=== PATIENT | male | born 1940 | race Caucasian/White ===

== ENCOUNTER 2018-03-21 07:30 | Inpatient (IN) | payer MEDICARE ==
--- NOTE | 2018-03-13 04:03 | HP ---
HISTORY AND PHYSICAL: DATE OF PROCEDURE: 03/21/18. PROVIDER: Dr. Subha Cain.* (DICTATED BY VAHID NICHOLAS) PROCEDURE: Left total knee arthroplasty. HISTORY OF PRESENT ILLNESS: Mr. Rogers is a 77-year-old gentleman with a history of bilateral knee pain. He states his left knee is more painful that his right. He reports 5/10, aching, throbbing pain along the joint line. He feels unstable. He has failed conservative management with anti-inflammatories, pain medications, physical therapy and steroid injections without any relief. He would like to proceed with a left total knee arthroplasty. PAST MEDICAL HISTORY: 1. Hypercholesterolemia. 2. Osteoarthritis. 3. Anemia. 4. Basal-cell carcinoma on the hand. PAST SURGICAL HISTORY: Removal of basal-cell carcinoma. MEDICATIONS: Ibuprofen. FAMILY HISTORY: Maternal and paternal cancer. 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 He lives with his . No tobacco or recreational drug use. He has 10 alcoholic beverages per week, stating normally very active, and independent ambulator and right-hand dominant. REVIEW OF SYSTEMS: General: He denies any fevers, chills or night sweats. No known anesthesia problems. HEENT: He denies any headaches, lightheadedness or syncopal episode. Cardiothoracic: He denies any chest pain, heart palpitations , or edema. Pulmonary: He denies any shortness of breath with exertion, chronic cough, or COPD. GI: He denies any nausea or vomiting or diarrhea, or constipation. : He denies any nocturia, urinary frequency or urinary urgency , or history of UTIs. MSK: He admits to bilateral knee pain. He denies any chronic or intermittent back pain or fractures. Integument: He denies any abrasions, lesions, rashes, lumps, or open sores. Endocrine: He denies any diabetes or thyroid issues. PHYSICAL EXAMINATION GENERAL: The patient is alert and oriented x3 with appropriate mood and affect , appropriate dress and hygiene, antalgic gait, in no acute distress. HEENT: Normocephalic atraumatic. His hearing and vision are grossly intact. PULMONARY: Lungs are clear to auscultation bilaterally with no wheezes, rales or rhonchi. CARDIO: Regular rate and rhythm. Normal S1 and S2. No appreciable S3 and S4. No murmurs, rubs or gallops. MSK: Left knee inspection, left knee reveals no erythema or ecchymosis. Skin is warm, dry and intact. No abrasions or open wounds. He has a varus deformity of the knee. Moderate effusion of the knee is appreciated. Range of motion is 10 degrees shy, full extension to 120 degrees of flexion. No varus or valgus pain or instability. Some tenderness along the MCL and the medial joint line. No tenderness to palpation along the lateral joint line and patellofemoral region. He is neurovascularly intact distally with a 2+ dorsalis pedis pulse. ASSESSMENT: Left knee osteoarthritis, severe endstage. PLAN: Plan to the OR for a left total knee arthroplasty with Dr. Subha Cain, on 03/21/18. The risks and benefits of the surgery were discussed with the patient and he understood. He will follow up in 10 to 14 days postop for suture removal and reassessment. VAHID NICHOLAS [id number]/[facility] #: [id number] [place]
[~2018-03-21 07:30] MED LIST: Acetaminophen TAB* 325 MG PO ONE; Famotidine IV* 10 MG/ML 2 ML (20 mg) IV ONE; Gabapentin CAP(*) 300 MG PO ONE; Tranexamic Acid 1,000 MG in NS 0.9% 50 ML* (outpatient use) IV SCH; celeCOXIB CAP* 200 MG PO ONE
[2018-03-21] MEDS ORDERED: Buffered Lidocaine 0.9% SYRIN* 5 ML/SYR SYRINGE INTRADERM ONE (08:34)
--- OUTSIDE RECORDS SUMMARY | 2018-03-21 08:43 | XMS REPORT ---
:1940 External Reference #:[id number] Author Organization [facility] Address [address] [place] [address] Phone [phone] Care Team Providers Name Role Phone Ryan Castillo MD Primary Care Physician Unavailable Payers Type Date Identification Numbers Payment Provider Subscriber Health Maintenance Policy Number: Medicare Blue o [facility] [id number] PayID: [id number] [address] [address] [place] [address] Problems Date Description Provider Status Onset: 12/02/2017 Disorder of shoulder Kimberly High MD Active Onset: 10/24/2017 Localized, primary osteoarthritis Subha Cain M.D. 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 consumes alcohol 10/week Smoking Patient is a former smoker Exercise Type/Frequency Exercises sporadically Allergies, Adverse Reactions, Alerts Date Description Reaction Status Severity Comments 10/24/2017 NKDA active Medications Medication Date Status Form Strength Qnty SIG Indications Ordering Provider No Active 03/08/20 Active Unknown Medications 18 Ibuprofen Hx Tablets 600mg three Unknown 00 - times a 03/07/20 day 18 Medications Administered in Office Medication Date Status Form Strength Qnty SIG Indications Ordering Provider Triamcinolone 10/25/ Administered Injection Rosmery (Kenalog) 2017 CHIQUITA Peterson Vital Signs Date Vital Result Comment 03/08/2018 Height 72 inches 6'0" Weight 187.00 lb Heart Rate 72 /min BP Systolic 124 mmHg BP Diastolic 84 mmHg BMI (Body Mass Index) 25.4 kg/m2 12/02/2017 Height 72 inches 6'0" Weight 188.00 lb BP Systolic 132 mmHg BP Diastolic 78 mmHg Respiratory Rate 20 /min Pain Level 0 BMI (Body Mass Index) 25.5 kg/m2 10/25/2017 Height 72 inches 6'0" Weight 188.00 lb BP Systolic 130 mmHg BP Diastolic 86 mmHg Respiratory Rate 20 /min Body Temperature 97.5 F Pain Level 3 BMI (Body Mass Index) 25.5 kg/m2 10/24/2017 Height 72 inches 6'0" Weight 188.00 lb Heart Rate 64 /min BP Systolic 144 mmHg BP Diastolic 84 mmHg BMI (Body Mass Index) 25.5 kg/m2 Results Description No Information Procedures Date CPT Code Description Status 10/25/2017 54283 Inject/Drain Joint/Bursa Major W/O US Completed Encounters Type Date Location Provider CPT E/M Dx Office Visit 12/02/2017 9:00a [facility] [place] [address] M75.41 [facility] Office Visit 10/25/2017 9:00a [facility] [place] [address] M25.512 [facility] M25.511 M75.41 S46.012D Office Visit 10/24/2017 10:00a [facility] M.D. 52860 M25.561 [facility] M25.562 M25.461 M25.462 M17.0 Plan of Care Future Appointment(s):04/05/2018 11:15 am - Subha Cain M.D. at [facility]03/21/2018 11:30 am - VAHID Colunga at [facility]03/21/2018 11:30 am - VAHID Dow at [facility]03/21/2018 11:30 am - Subha Cain M.D. at [facility]03/08/2018 - Subha Cain M.D.M25.562 Pain in left kneeFollow up:Follow up: 2 weeks after cybsokqW75.462 Effusion, left kneeM17.0 Bilateral primary osteoarthritis of knee
[2018-03-21] MEDS ORDERED: Acetaminophen TAB* 325 MG ONE (08:45)
[2018-03-21] MEDS ORDERED: celeCOXIB CAP* 100 MG ONE (08:45)
[2018-03-21] MEDS ORDERED: Famotidine IV* 10 MG/ML 2 ML (20 mg) ONE (08:45)
[2018-03-21] MEDS ORDERED: Gabapentin CAP(*) 300 MG ONE (08:45)
[2018-03-21] MEDS ORDERED: ceFAZolin 2 GM in NS PREMIX(*) 2 GM/100 ML BAG IVPB ONE (08:46)
[2018-03-21] MEDS ORDERED: Dexamethasone IV* 4 MG/ML 1 ML (4 MG) ONE (08:59)
[2018-03-21] MEDS ORDERED: Ondansetron INJ* 2 MG/ML VIAL ONE (08:59)
[2018-03-21] MEDS ORDERED: ROPIVACAINE 5 MG/ML 30 ML BTL (0.5%) ONE ×2 (08:59→10:55)
[2018-03-21] MEDS ORDERED: Lidocaine 2% PF * 5 ML VIAL ONE ×3 (08:59→12:01)
[2018-03-21] MEDS ORDERED: Propofol* 10 MG/ML 20 ML BTL IV PUSH ONE ×2 (08:59→12:01)
[2018-03-21] MEDS ORDERED: KETAMINE HCL* 50 MG/ML 10 ML VIAL ONE (09:00)
[2018-03-21] MEDS ORDERED: fentaNYL* 50 MCG/ML 2 ML VIAL (100 MCG VIAL) ONE (09:00)
[2018-03-21] MEDS ORDERED: Midazolam* 1 MG/ML 10 ML VIAL (10 MG) ONE (09:00)
[2018-03-21] MEDS ORDERED: Ropivacaine* 2 MG/ML 20 ML VIAL (0.2%) ONE (10:39)
[2018-03-21] MEDS ORDERED: Bupivacaine 0.5% SDV PF* 30ML VIAL ONE (10:55)
[2018-03-21] MEDS ORDERED: fentaNYL* 50 MCG/ML 2 ML VIAL (100 MCG VIAL) IV PRN (12:54)
[2018-03-21] MEDS ORDERED: Ondansetron INJ* 2 MG/ML VIAL IV PRN ×2 (12:54→14:12)
[2018-03-21] MEDS ORDERED: Naloxone* 0.4 MG/ML 1 ML VIAL IV PRN (12:54)
[2018-03-21] MEDS ORDERED: diPHENhydraMINE IV* 50 MG/ML 1 ml VIAL (BENADRYL) IV PRN (14:12)
[2018-03-21] MEDS ORDERED: Cyclobenzaprine TAB* 10 MG PO PRN (14:12)
[2018-03-21] MEDS ORDERED: Morphine INJ* 2 MG/ML 1 ML SYRINGE (TWO MG - NEW SYRINGE VERSION) IV PRN (14:12)
[2018-03-21] MEDS ORDERED: Magnesium Hydroxide LIQ* 30 ML UDC PO PRN (14:12)
[2018-03-21] MEDS ORDERED: diPHENhydraMINE PO* 25 MG PO PRN (14:12)
[2018-03-21] MEDS ORDERED: Ondansetron ODT TAB* 4 MG PO PRN (14:12)
[2018-03-21] MEDS ORDERED: Sildenafil (NF) 25 MG TAB PO PRN (14:18)
--- NOTE | 2018-03-21 15:53 | RAD ---
Indication: Postop LEFT total knee replacement. Comparison: October 24, 2017 Technique: LEFT knee: Crosstable lateral and AP views. Report: Total knee prosthesis in place. Negative for periprosthetic fracture. Iatrogenic gas at the medullary space of the distal femur and fluid and gas in the joint space and anterior soft tissues. IMPRESSION: #. Unremarkable immediate postop appearance following LEFT total knee replacement.
[2018-03-21] MEDS ORDERED: Warfarin TAB(*) 6 MG PO ONE (17:00)
[2018-03-21] MEDS: Acetaminophen TAB* 325 MG PO SCH ×2 (18:06→22:50)
[2018-03-21] MEDS: oxyCODONE/Acetamin 5/325 MG* TAB PO PRN (19:06)
[2018-03-21] MEDS: ceFAZolin 1 GM in Dextrose (*) 1 GM/50 ML BAG IVPB SCH (20:19)
[2018-03-21] MEDS: Docusate CAP* 100 MG PO SCH (20:21)
[2018-03-21] MEDS: Magnesium Hydroxide LIQ* 30 ML UDC PO SCH (20:21)
[2018-03-21] MEDS: oxyCODONE TAB* 5 MG TAB PO PRN (22:52)
[2018-03-22] MEDS: ceFAZolin 1 GM in Dextrose (*) 1 GM/50 ML BAG IVPB SCH ×2 (03:11→11:21)
[2018-03-22] MEDS: oxyCODONE/Acetamin 5/325 MG* TAB PO PRN ×5 (03:13→21:21)
[2018-03-22 05:53] LABS: Hematocrit 42 % (42-52); Hemoglobin 14.2 g/dl (14.0-18.0); Mean Platelet Volume 8.8 um3 (7.4-10.4); Platelet Count 151 10^3/ul (150-450)
[2018-03-22 05:59] LABS: INR 0.89 (0.77-1.02)
[2018-03-22 06:11] LABS: EGFR Non-African American 92.9 (>60)
[2018-03-22] MEDS: Acetaminophen TAB* 325 MG PO SCH ×2 (08:01→16:04)
[2018-03-22] MEDS: Magnesium Hydroxide LIQ* 30 ML UDC PO SCH ×2 (09:21→21:21)
[2018-03-22] MEDS: Docusate CAP* 100 MG PO SCH ×2 (09:21→21:21)
--- NOTE | 2018-03-22 10:41 | PN ---
Progress Note - Progress Note Date of Service: 03/22/18 SOAP: Subjective: [] Patient seen and examined OOB in chair. He is POD 1 s/p LTK. Knee pain is rated 1/10. Denies chest pain, shortness of breath, dizziness or nausea. Objective: []General: NAD, appears well LLE: Left knee dressing CDI without surrounding erythema or discharge. Thigh is soft, DF/PF intact, Sensation intact distally, DP2+. BL calves supple and nontender without erythema, edema or palpable cords Assessment: []POD 1 SP left total knee arthroplasty 03/21 Dr Cain Plan: []WBAT PT/OT Lovenox bridge to coumadin, coumadin 8 mg today anticipate DC home 03/23 Laboratory Last Values Hgb 14.2 g/dl (14.0-18.0) 03/22/18 05:21 Hct 42 % (42-52) 03/22/18 05:21 Plt Count 151 10^3/ul (150-450) 03/22/18 05:21 MPV 8.8 um3 (7.4-10.4) 03/22/18 05:21 INR (Anticoag Therapy) 0.89 (0.77-1.02) 03/22/18 05:21 Sodium 134 mmol/L (135-145) L 03/22/18 05:21 Potassium 4.4 mmol/L (3.5-5.0) 03/22/18 05:21 Chloride 101 mmol/L (101-111) 03/22/18 05:21 Carbon Dioxide 29 mmol/L (22-32) 03/22/18 05:21 Anion Gap 4 mmol/L (2-11) 03/22/18 05:21 BUN 15 mg/dL (6-24) 03/22/18 05:21 Creatinine 0.81 mg/dL (0.67-1.17) 03/22/18 05:21 Est GFR ( Amer) 112.4 (>60) 03/22/18 05:21 Est GFR (Non-Af Amer) 92.9 (>60) 03/22/18 05:21 BUN/Creatinine Ratio 18.5 (8-20) 03/22/18 05:21 Glucose 152 mg/dL (70-100) H 03/22/18 05:21 Calcium 9.1 mg/dL (8.6-10.3) 03/22/18 05:21 Vital Signs Temp 98.0 F 03/22/18 07:15 Pulse 60 03/22/18 07:15 Resp 18 03/22/18 09:19 BP 131/74 03/22/18 07:15 Pulse Ox 97 03/22/18 08:00 Intake & Output 03/21/18 03/22/18 03/22/18 18:59 06:59 18:59 Intake Total 1950 2225 320 Output Total 300 1999 Balance 1650 225 320 Weight 189 lb 6.4 oz Intake: IV Fluids 1950 925 ABX - CEFAZOLIN 55 LR 1900 870 NS 50ML, Cefazolin 2G 50 Oral 1300 320 Output: Urine 0 Acuña 300 1999 Other: # Bowel Movements 0
[2018-03-22] MEDS: Enoxaparin(*) 40 MG/0.4 ML SYR SUBCUT SCH (11:21)
[2018-03-22] MEDS ORDERED: NS 0.9% 500 ML* 500 ML IV ONE (13:35)
--- NOTE | 2018-03-22 13:46 | PN ---
Hospitalist Progress Note Date of Service: 03/22/18 Pt seen and examined after a rapid response was called by staff. Pt was in joint gym for PT session and had just recently taken Percocet 2 hrs prior. He mentions that he felt like he was about to pass out when he sat back in the chair and felt nauseated. BP 109/57, sats =100%. FS = 111. Pt was found awake , alert, and oriented but diaphoretic. Ordered 500 cc NS bolus x1, then decrease to 75 cc/hr x 2L. CBC with diff, CMP, Mg2+, Phosphate, Troponins ordered. EKG did not reveal any significant blocks nor ST segment changes. Instructed RN to text page me the data for orthostatic VS once bolus is done.
[2018-03-22] MEDS: NS 0.9% 1000 ML* 1,000 ML IV SCH (13:57)
--- NOTE | 2018-03-22 14:00 | RAD ---
Indication: Nausea and diaphoresis. Single frontal view of the chest performed at 1345 hours was reviewed. Comparison is made with previous exam dated March 08, 2018. No mediastinal shift is noted. Heart is of normal size and configuration. Lung land appear clear. IMPRESSION: NO ACTIVE CARDIOPULMONARY DISEASE IS NOTED.
[2018-03-22 15:14] LABS: Hematocrit 38 % (42-52); Hemoglobin 12.9 g/dl (14.0-18.0); Mean Corpuscular HGB Conc 34 g/dl (31-36); Mean Corpuscular Hemoglobin 32 pg (27-31); Mean Corpuscular Volume 93 fL (80-94); Mean Platelet Volume 9.1 um3 (7.4-10.4); Platelet Count 138 10^3/ul (150-450); Red Blood Count 4.04 10^6/ul (4.00-5.40); Red Cell Distribution Width 13 % (10.5-15); White Blood Count 11.5 10^3/ul (3.5-10.8)
[2018-03-22 15:28] LABS: EGFR Non-African American 91.6 (>60)
[2018-03-22] MEDS ORDERED: Sodium Phosphate INJ* 30 MMOLE in NS 0.9% 250 ML* 250 ML IVPB STA (15:57)
[2018-03-22] MEDS ORDERED: Warfarin TAB(*) 4 MG PO ONE (17:00)
--- NOTE | 2018-03-22 21:59 | OP ---
DATE OF OPERATION: 03/21/18 - ROOM #[id number] DATE OF : 44 SURGEON: Subha Cain MD COMMUNICATIONS MANAGER: VAHID Colunga. Ms. Bautista did help throughout the procedure with preparation of the leg, wound retraction, manipulation of the knee, and wound closure. ANESTHESIOLOGIST: Dr. Marroquin. ANESTHESIA: Spinal. PRE-OP DIAGNOSIS: Severe end-stage degenerative osteoarthritis of the left knee joint. POST-OP DIAGNOSIS: Severe end-stage degenerative osteoarthritis of the left knee joint. OPERATIVE PROCEDURE: Left total knee arthroplasty. TOURNIQUET TIME: 48 minutes. ESTIMATED BLOOD LOSS: 250 cc. SPECIMENS: Bone and cartilage from the left knee sent to Pathology. HARDWARE USED: This is Case and Nephew cemented total knee arthroplasty hardware. Two packages of Simplex bone cement. For the femur, a left size 6 posterior stabilized Legion femoral component. For the tibia, a left size 6 Anh II tibial base plate. For the insert, a 9-mm posterior stabilized articular insert size 5/6. For the patella, a 32 mm 3-peg all-poly patella. BRIEF HISTORY/INDICATIONS: Mr. Rogers is a 77-year-old gentleman with years of increasingly severe left knee pain. He failed conservative treatment with anti - inflammatories, pain medications, intraarticular injections, and physical therapy. Due to continued pain and decreased quality of life, he elected to undergo left total knee arthroplasty. Radiographs showed [id number] contact. Informed consent was obtained from the patient. He understood the risks of surgery included but were not limited to bleeding, infection, damage to nearby structures, continued pain, need for further surgery, intraoperative fracture, nerve palsy, hardware failure or loosening, knee stiffness, loss of motion, stroke, heart attack, blood clot, and . He wished to proceed. INTRAOPERATIVE FINDINGS: Intraoperatively, the patient was noted to have severe end-stage arthritis with complete loss of cartilage in the medial and patellofemoral compartments. DESCRIPTION OF PROCEDURE: Mr. Rogers was identified in the preanesthesia unit. His left lower extremity was marked as the correct operative side. Informed consent was signed and placed in the chart. The patient was taken to the operating room and placed under spinal anesthesia. A Acuña catheter was placed. Tourniquet was placed on the left thigh. Left lower extremity was prepped and draped in the usual sterile fashion. Preop time-out was made to correctly identify the patient's side and site. Appropriate perioperative antibiotics were given within 1 hour of incision. Tourniquet was inflated and total tourniquet time for this procedure was 48 minutes. A midline incision was made with a 10 blade and carried down to the extensor mechanism. A new 10 blade was used to make a standard medial parapatellar arthrotomy. The patella was subluxed laterally. Electrocautery was used to subperiosteally elevate soft tissue off the superomedial tibia to the mid sagittal plane. The knee was flexed up. The anterior horn of the lateral meniscus and ACL were sharply released. A drill was used to enter the distal femur. Intramedullary distal femoral cutting guide was pinned on the distal femur. Oscillating saw was used to make the distal femoral cut. Next, the external rotation guide was pinned on the distal femur. Distal femur was sized to a size 6. Size 6 multi-cutting jig was pinned on the distal femur. Oscillating saw was used to make the appropriate chamfer cuts. PCL was completely released and the tibia was subluxed anteriorly. Extramedullary tibial cutting guide was pinned on the proximal tibia. Oscillating saw was used to make the proximal tibial cut perpendicular to the mechanical axis of the tibia. The bone was carefully removed. The knee was brought out into full extension and the spacer block had good fit with the knee in full extension. Medial and lateral ligaments were well balanced. Flexion and extension gaps were well balanced. The knee was flexed up. Lamina chief medical officer was placed both medially and laterally. Any remaining meniscus was carefully removed using electrocautery. Curved osteotome was used to remove any osteophytes along the posterior femoral condyles. Tibial tray and drop tigre were placed and once again confirmed a satisfactory tibial cut. A size 6 left femoral trial was impacted onto the distal femur and had good fit. The box for the posterior stabilized implant was prepared using a reamer and box cut osteotome. Size 6 tibial tray trial with a 9 mm insert trial was placed and the knee was taken through a range of motion. The knee had full extension to 130 degrees of flexion. There was satisfactory patellofemoral tracking. Patella was everted. 9 mm of patellar bone and cartilage were carefully removed using an oscillating saw. Patella was sized to a size 32. Three peg holes were drilled through the size 32 guide. A 32 trial patella was placed and the knee was taken through a range of motion. There was satisfactory patellofemoral tracking. All trials were carefully removed. Tibia was subluxed anteriorly and sized to a size 6. Proximal tibia was prepared using a size 6 keel punch. All bony cut surfaces were copiously irrigated with sterile saline and dried. Final implants were cemented into place starting with the tibia, followed by the femur , and last the patella. A 9 mm insert trial was placed while the knee was brought out into full extension. Tourniquet was turned down at 48 minutes. Electrocautery was used to obtain meticulous hemostasis. The knee was copiously irrigated with sterile saline. Once the cement had fully cured, the insert trial was removed. Any excess cement was removed from around the capsule and hardware. Final insert chosen was a 9 mm posterior stabilized articular insert size 5/6. This was locked into position on the tibial tray. The stability of the insert was checked and rechecked and noted to be stable. The knee was copiously irrigated with sterile saline. Extensor mechanism was closed using interrupted #1 Vicryl. The rest of the incision was closed in a layered fashion using 0 and 2-0 Vicryl. Skin was closed using running 3-0 nylon suture. Sterile Xeroform, 4x4's, and Webril were used to cover the incision. Ryan wrap and cold pack were placed over this. The patient's anesthesia was reversed without difficulty. He was taken to the PACU in stable condition. Intended weightbearing will be weightbearing as tolerated. Intended DVT prophylaxis will be Coumadin with a Lovenox bridge. [id number]/[facility] #: [id number] [facility]ITAL[facility]
[2018-03-23] MEDS: Acetaminophen TAB* 325 MG PO SCH ×3 (01:21→17:03)
[2018-03-23] MEDS: NS 0.9% 1000 ML* 1,000 ML IV SCH (03:55)
[2018-03-23 05:24] LABS: Hematocrit 41 % (42-52); Hemoglobin 13.9 g/dl (14.0-18.0); Mean Platelet Volume 8.9 um3 (7.4-10.4); Platelet Count 137 10^3/ul (150-450)
[2018-03-23 05:28] LABS: INR 0.99 (0.77-1.02)
[2018-03-23] MEDS: oxyCODONE/Acetamin 5/325 MG* TAB PO PRN ×2 (07:10→11:50)
[2018-03-23] MEDS: Docusate CAP* 100 MG PO SCH (07:10)
[2018-03-23] MEDS: Magnesium Hydroxide LIQ* 30 ML UDC PO SCH (07:11)
--- NOTE | 2018-03-23 09:55 | PN ---
Progress Note - Progress Note Date of Service: 03/23/18 SOAP: Subjective: OOB to chair, pain well controlled, denies dizziness Objective: Vital Signs Temp Pulse Resp BP Pulse Ox 98.7 F 85 15 156/86 100 03/23/18 07:46 03/23/18 07:46 03/23/18 08:49 03/23/18 07:46 03/23/18 07:46 Laboratory Last Values WBC 11.5 10^3/ul (3.5-10.8) H 03/22/18 14:28 RBC 4.04 10^6/ul (4.00-5.40) 03/22/18 14:28 Hgb 13.9 g/dl (14.0-18.0) L 03/23/18 05:04 Hct 41 % (42-52) L 03/23/18 05:04 MCV 93 fL (80-94) 03/22/18 14:28 MCH 32 pg (27-31) H 03/22/18 14:28 MCHC 34 g/dl (31-36) 03/22/18 14:28 RDW 13 % (10.5-15) 03/22/18 14:28 Plt Count 137 10^3/ul (150-450) L 03/23/18 05:04 MPV 8.9 um3 (7.4-10.4) 03/23/18 05:04 INR (Anticoag Therapy) 0.99 (0.77-1.02) 03/23/18 05:04 Sodium 135 mmol/L (135-145) 03/23/18 02:28 Potassium 3.9 mmol/L (3.5-5.0) 03/22/18 14:28 Chloride 101 mmol/L (101-111) 03/22/18 14:28 Carbon Dioxide 29 mmol/L (22-32) 03/22/18 14:28 Anion Gap 3 mmol/L (2-11) 03/22/18 14:28 BUN 14 mg/dL (6-24) 03/22/18 14:28 Creatinine 0.82 mg/dL (0.67-1.17) 03/22/18 14:28 Est GFR ( Amer) 110.8 (>60) 03/22/18 14:28 Est GFR (Non-Af Amer) 91.6 (>60) 03/22/18 14:28 BUN/Creatinine Ratio 17.1 (8-20) 03/22/18 14:28 Glucose 128 mg/dL (70-100) H 03/22/18 14:28 POC Glucose (mg/dL) 111 mg/dL (70-100) H 03/22/18 13:27 Calcium 8.6 mg/dL (8.6-10.3) 03/22/18 14:28 Phosphorus 2.1 mg/dL (2.5-5.0) L 03/22/18 14:28 Magnesium 2.0 mg/dL (1.9-2.7) 03/22/18 14:28 Total Bilirubin 0.40 mg/dL (0.2-1.0) 03/22/18 14:28 AST 15 U/L (13-39) 03/22/18 14:28 ALT 11 U/L (7-52) 03/22/18 14:28 Alkaline Phosphatase 50 U/L (34-104) 03/22/18 14:28 Troponin I 0.00 ng/mL (<0.04) 03/23/18 02:28 Total Protein 5.7 g/dL (6.4-8.9) L 03/22/18 14:28 Albumin 3.2 g/dL (3.2-5.2) 03/22/18 14:28 Globulin 2.5 g/dL (2-4) 03/22/18 14:28 Albumin/Globulin Ratio 1.3 (1-3) 03/22/18 14:28 incision: c/d; dressing changed PE: NVI Assessment: s/p left TKA; POD#2 Plan: 1) PT/OT/WBAT 2) coumadin/lovenox for DVT prophylaxis 3) home today
[2018-03-23] MEDS: oxyCODONE TAB* 5 MG TAB PO PRN ×3 (10:08→17:24)
--- NOTE | 2018-03-23 10:48 | DS ---
DATE OF ADMISSION: 03/21/2018. DATE OF DISCHARGE: 03/23/2018. ATTENDING SURGEON: Dr. Subha Cain * (dictated by VAHID Faulkner). PRINCIPAL DIAGNOSIS: End-stage osteoarthritis left knee. DISCHARGE DIAGNOSIS: End-stage osteoarthritis left knee. HISTORY OF PRESENT ILLNESS: Mr. Rogers is a 77-year-old gentleman with complaints of left knee pain. He failed conservative treatment and elected to proceed with a left total knee arthroplasty. HOSPITAL COURSE: Mr. Rogers was admitted electively to the hospital on 2017 and underwent a left total knee arthroplasty. He tolerated the procedure well. Postoperatively, he was placed on Lovenox and Coumadin for DVT prophylaxis. On postoperative day one, his H and H was 12 and 38; on postoperative day two, 13 and 41. His INR went from 0.89 to 0.99. At the time of discharge, he was afebrile and his vital signs were stable. DISCHARGE MEDICATIONS: 1. Percocet 5/325 one to two tabs every 4 to 6 hours. 2. Coumadin 2 mg tabs take at 5:00 p.m. daily, dosing instructions were given. 3. Colace 100 mg two to three times daily as needed for constipation. 4. Sildenafil 25 mg daily prn. PHYSICAL EXAMINATION UPON DISCHARGE: The incision was clean, dry, and healing well. There were no signs of infection. He was able to dorsiflex and plantarflex. He had a 2+ dorsalis pedis pulse and intact sensation. DISCHARGE INSTRUCTIONS: He was discharged home in stable condition. He was given Percocet for pain and Coumadin for DVT prophylaxis. He can start showering on Tuesday, letting the soap and water run over the incision, pat the area dry. He cannot take a bath at this time. He plans to begin outpatient physical therapy next week and he will call our office for a prescription. He will see Dr. Cain back in two weeks. We have asked him to call sooner with any questions or concerns. DISCHARGE DISPOSITION: Stable. VAHID FAULKNER [id number]/[facility] #: [id number] [facility]
[2018-03-23] MEDS: Enoxaparin(*) 40 MG/0.4 ML SYR SUBCUT SCH (11:47)
[2018-03-23 19:19] VITALS: BP 144/66
== END 2018-03-23 20:30 | disposition home or self-care (01) | DRG 470 ==
LOC: AA 08:35 → SSU 17:54
PROVIDERS: ADMIT Orthopaedic Surgery Adult Reconstructive Orthopaedic Surgery; ATTEND Orthopaedic Surgery Adult Reconstructive Orthopaedic Surgery
PROC: 0SRD0J9 Replacement of Left Knee Joint with Synthetic Substitute, Cemented, Open Approach (ICD-10-PCS; principal; 2018-03-21 11:00)
DX: M17.12 Unilateral primary osteoarthritis, left knee (principal); E78.00 Pure hypercholesterolemia, unspecified; Z79.01 Long term (current) use of anticoagulants; M21.162 Varus deformity, not elsewhere classified, left knee; M25.462 Effusion, left knee; H91.90 Unspecified hearing loss, unspecified ear; N52.9 Male erectile dysfunction, unspecified; M48.00 Spinal stenosis, site unspecified; M54.31 Sciatica, right side; M25.762 Osteophyte, left knee; Z85.828 Personal history of other malignant neoplasm of skin; Z80.8 Family history of malignant neoplasm of other organs or systems; Z87.891 Personal history of nicotine dependence; Z72.89 Other problems related to lifestyle; Z23 Encounter for immunization
CPT/HCPCS: 36415; 71045; 80048; 80053; 83735; 84100; 84300; 84484; 85014; 85018; 85027; 85049; 85610; 90686; 93005; A9270-GY; G8978-GP-CJ; G8979-GP-CI; G8987-GO-CJ; G8988-GO-CI; J0690; J1100; J1650; J2250; J2405; J2704; J2795; J3010

== ENCOUNTER → 2018-11-15 07:43 | Day surgery (SDC) | payer MEDICARE ==
--- NOTE | 2018-11-08 15:28 | HP ---
CC: Dr. Garner, [facility]; Dr. Castillo* PREOPERATIVE HISTORY AND PHYSICAL: DATE OF ADMISSION/SURGERY: 11/15/18 This patient is scheduled for same-day surgery by Dr. Garner on Tuesday, . DATE OF PREOPERATIVE HISTORY AND PHYSICAL EXAMINATION: 11/08/18. ATTENDING SURGEON: Dr. Alf Garner* (dictated by Ciara Rutherford NP). CHIEF COMPLAINT: Right inguinal hernia. HISTORY OF PRESENT ILLNESS: The patient is a 78-year-old male, who presented to [facility] on 10[facility] for evaluation of a right groin bulge. The patient noted this bulge approximately 1 month ago. He does not recall lifting anything heavy and denies any pain at this site. He recently went on a 3-week vacation to [place]. He denies any signs or symptoms to suggest incarceration or strangulation. He denies any dysuria. He reports that the bulge is larger at the end of the day. Dr. Garner examined the patient and notes a large reducible right inguinal hernia. There was no left inguinal hernia. Dr. Garner discussed the findings with the patient and has recommended laparoscopic right inguinal hernia repair with mesh as a same-day surgery procedure. Dr. Garner described the nature of the surgical procedure, the relevant risks and benefits and today, I reviewed the typical postoperative care and recovery. The patient has had a chance to ask questions and stated that he understands the information and is satisfied with the answers given to his questions. He will sign surgical consent on the day of surgery. PAST MEDICAL HISTORY: Polymyalgia rheumatica in the late ; lumbar stenosis ; osteoarthritis in the right knee and right hip. PAST SURGICAL HISTORY: Left knee arthroplasty, March 2018, at [facility]. MEDICATIONS: 1. Sildenafil 100 mg p.r.n. 2. Ibuprofen p.r.n. ALLERGIES: No known drug allergies. FAMILY HISTORY: No known anesthesia complications, bleeding tendencies, or clotting disorders. Sister had a history of melanoma. Father had a history of lung cancer. Mother had some type of abdominal carcinoma. 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 He quit smoking in 1966. He drinks on average 20 drinks per week and 6 to 8 cups of coffee daily and routinely exercises. He denies the use of other substances. REVIEW OF SYSTEMS: Constitutional: No fevers, chills, excessive fatigue, or weight loss. General: No history of anesthesia complications. No bleeding tendencies. No blood transfusions. No history of MRSA. No history of deep vein thrombosis or pulmonary embolism. Endocrine: No diabetes or thyroid disease. Hematologic: No easy bruising or bleeding. Respiratory: No dyspnea on exertion. No chronic cough. Cardiovascular: No anginal chest pain, palpitations, or orthopnea. He can climb 2 flights of stairs without difficulties and routinely exercises. Gastrointestinal: No nausea, vomiting, diarrhea, GI bleeding, or constipation; no change in bowel habits, no heartburn. Genitourinary: No dysuria. Musculoskeletal: Osteoarthritis, right knee and right hip. Normal strength and tone. Integumentary: No chronic rashes or skin changes. No skin ulcerations. Neurologic: No headache or blurred vision. He reports tingling in his fingertips. No areas of focal weakness. PHYSICAL EXAMINATION GENERAL SURVEY: The patient is a 78-year-old male, well developed, well nourished, in no acute distress. VITAL SIGNS: Height 72 inches, weight 186 pounds, body mass index 25.2. Blood pressure 122/80, pulse 66 and regular, respiratory rate 16, temperature 98.6 tympanic. HEENT: Benign. NECK: Supple. No cervical lymphadenopathy. LUNGS: Breath sounds bilaterally clear and equal. HEART: Regular rate and rhythm. No murmurs or rubs appreciated. ABDOMEN: Active bowel sounds. Soft, nondistended, nontender throughout. No obvious masses, organomegaly, or evidence of ventral hernia. BACK: No CVA tenderness. GENITALIA: Inguinal exam done by Dr. Garner revealed a large reducible right inguinal hernia. No left inguinal hernia. Testicles were normally descended without lesion. RECTAL: Exam deferred. MUSCULOSKELETAL: Full range of motion. NEUROLOGIC: Alert and oriented x3. Steady gait. SKIN: Warm, dry, intact. IMPRESSION: Right inguinal hernia. PLAN: Same-day surgery admission to Dr. Garner's service on 11/15/18 , for laparoscopic right inguinal hernia repair with mesh. IMANI RUTHERFORD, INTERLOCKER [id number]/[facility] #: [id number] [place]
[~2018-11-15 07:43] MED LIST changes: +Acetaminophen TAB* 325 MG ONE; +Buffered Lidocaine 1% SYRIN* 1 ML/SYRINGE INTRADERM ONE; +Bupivacaine 0.25% EPI 200,000* 30 ML SDV ONE; +Dexamethasone IV* 4 MG/ML 1 ML (4 MG) ONE; +DiMENhydriNATE IV* 50 MG/ML VIAL IV PUSH PRN; -Famotidine IV* 10 MG/ML 2 ML (20 mg) IV ONE; +Famotidine IV* 10 MG/ML 2 ML (20 mg) ONE; +Gabapentin CAP(*) 100 MG ONE; +HYDROcodone/ACETAMIN 5-325 MG* 1 TAB PO PRN; +Ketorolac INJ* 30 MG/ML 1 ML VIAL ONE; +Lactated Ringers 1000 ML Bag* 1,000 ML IV SCH; +Metoprolol Tartrate IV* 1 MG/ML 5 ML VIAL ONE; +Midazolam* 1 MG/ML 2 ML VIAL (2 MG) ONE; +Naloxone* 0.4 MG/ML 1 ML VIAL IV PRN; +Ondansetron INJ* 2 MG/ML VIAL IV PRN; +Ondansetron INJ* 2 MG/ML VIAL ONE; +PROCHLORPERAZINE INJ 5 MG/ML 2 ML VIAL IV PRN; +Propofol* 10 MG/ML 20 ML BTL ONE; +Rocuronium* 10 MG/ML VIAL ONE; -Tranexamic Acid 1,000 MG in NS 0.9% 50 ML* (outpatient use) IV SCH; +ceFAZolin 2 GM PREMIX in ORs 2 GM/50 ML BAG IVPB ONE; -celeCOXIB CAP* 200 MG PO ONE; +diPHENhydraMINE IV* 50 MG/ML 1 ml VIAL (BENADRYL) IV PRN; +fentaNYL* 50 MCG/ML 2 ML VIAL (100 MCG VIAL) IV PRN; +fentaNYL* 50 MCG/ML 2 ML VIAL (100 MCG VIAL) ONE
--- NOTE | 2018-11-15 13:37 | OP ---
Operative Report - Blank - Operative Report Date of Operation: 11/15/18 Note: Brief Operative Note Preop Dx: Right inguinal hernia Postop Dx: Same; direct Procedure: Laparoscopic repair RIH with mesh Anesthesia: PRACHI Surgeon: Pascual Combination Machine Tool Setter: VAHID Falcon; LUIS Whiteside Fluids: 800 mL LR EBL: < 25 mL Specimen: none Drains: none Findings: dictated
[2018-11-15 15:03] VITALS: BP 130/74
--- NOTE | 2018-11-15 19:26 | OP ---
CC: Primary Care Doctor, Ryan Castillo MD * DATE OF OPERATION: 11/15/18 - [facility] DATE OF : 44 SURGEON: Alf Garner MD STREET LIGHT WIRER: VAHID Zaragoza ANESTHESIOLOGIST: Dr. Vázquez. ANESTHESIA: General anesthesia. PRE-OP DIAGNOSIS: Right inguinal hernia. POST-OP DIAGNOSIS: Right inguinal hernia. OPERATIVE PROCEDURE: Laparoscopic right inguinal hernia repair with mesh. ESTIMATED BLOOD LOSS: Less than 20 cc. FLUIDS: 800 cc of crystalloid fluid given. SPECIMENS: None. DRAINS: None. DESCRIPTION OF PROCEDURE: The patient was identified in the preoperative area. He was marked appropriately, brought to the operating room and placed on the operating table in supine position. Preoperative antibiotics were given. Sequential devices were placed on bilateral lower extremities. General anesthesia was induced. The patient's abdomen was prepped and draped in standard surgical fashion and a time- out was performed. An infraumbilical incision was made. This was deepened down to the anterior fascia on the right, which incised and the rectus pillar retracted laterally and entry into the preperitoneal plane was made. Blunt dissection was carried out until we could place a 12-mm trocar into this area and allow the preperitoneal plane insufflate to a pressure of 12 mmHg. The patient tolerated the insufflation well. With minimal insufflation, we placed the camera in and did additional blunt dissection until we could place two 5-mm trocars in the lower midline. Review of the space showed that we had removed the posterior fascia at the superior aspect of our working area and we reflected this more anteriorly to breakdown the loose areolar tissue over the bladder right down to the pubic symphysis as well as Sumit's ligament both left and right. A large direct hernia was identified. Additional dissection was carried out to free up the space so that we could work , and we ended up making an injury in the peritoneum. We could see bowel and this appeared normal. There was no fluid in the belly. I did additional blunt dissection laterally until we were fully around the opening and then closed the defect with a 5-mm clip heat and vent aircraft mechanic using three clips in all. Next, we had already identified the epigastric vessels. These were maintained anteriorly and the dissection was carried out laterally at the [place] space. This allowed us to then drop the peritoneum posteriorly as it extended towards the spermatic structures. The peritoneal reflection was freed up from the spermatic structures, but there was no significant indirect hernia. A lipoma of the cord was dissected free as well and we skeletonized the cord structures. Attention was turned back to the direct hernia where most of this had already been dissected. Defect was approximately 2.5 cm. Additional dissection was carried out over Sumit's ligament to free this entirely. We identified the external iliac vein and we had a full clearance of the myopectineal orifice with no structures extending towards the internal ring or the direct space. Next, a medium size Bard 3DMax mesh was then placed into the preperitoneal plane , allowed to unfurl, tacked to the Sumit's ligament with two tacks and then laterally as well making sure that it was appropriately positioned without wrinkling. We then next let the peritoneal plane collapse and trocars were removed under direct vision. Next, we picked up the posterior fascia at our umbilical port site, incised this as well as the peritoneum until gas was evacuated from the abdominal cavity. There was no forthcoming free fluid and I felt this was not necessary to look into the abdomen. We then closed the posterior fascia with a 2-0 Vicryl stitch followed by 0 Vicryl stitch at the anterior fascial layer. Irrigation was then used, hemostasis achieved, and all 3 skin incisions were reapproximated with 4-0 Monocryl subcuticular sutures followed by Steri-Strips and sterile dressings. The patient tolerated the procedure well, was woken up in the OR and transferred to the PACU in stable condition. [id number]/[facility] #: [id number] [place]
== END | disposition home or self-care (01) ==
LOC: OR 07:43
PROVIDERS: ATTEND Surgery
DX: K40.90 Unilateral inguinal hernia, without obstruction or gangrene, not specified as recurrent (principal); Z87.891 Personal history of nicotine dependence
CPT/HCPCS: A9270-GY; C1781; J0690; J1100; J1885; J2250; J2405; J2704; J3010; J3490